=== PATIENT | male | born 1950 | race Caucasian/White ===

== ENCOUNTER → 2017-02-15 | Outpatient (CLI) | payer MEDICARE, OTHER ==
[~2017-02-15] MED LIST: ASPIR 8181 MG PO; BACTRIM DS TAB1 EACH PO; BACTROBAN15 GM TP; KEFLEX500 MG PO; LACTINEX TABLET1 EA PO; LEVOTHYROXINE50 MCG PO; LIPITOR TAB 2020 MG PO; MELOXICAM15 MG PO; PLAVIX 75 MG TA75 MG PO; ROPINIROLE HCL1 MG PO; SERTRALINE HCL100 MG PO
== END ==
LOC: HEART CORB 08:45
DX: I25.10 Atherosclerotic heart disease of native coronary artery without angina pectoris (principal); R07.2 Precordial pain; R06.02 Shortness of breath
CPT/HCPCS: 78452; 93306; A9502; J2785